=== PATIENT | male | born 1955 | race Two or more races ===

== ENCOUNTER 2017-01-22 22:10 | Inpatient (IN) | payer BC, OTHER ==
[~2017-01-22] VITALS: Ht 170.2 cm; Wt 68.2 kg
[~2017-01-22 22:10] MED LIST: Dilaudid PO; MELOXICAM15 MG PO; NAPROSYN500 MG PO; OXYCODONE HCL5 MG PO; PANTOPRAZOLE SO40 MG PO; REGLAN10 MG PO; TRAMADOL HCL50 MG PO
[2017-01-23 06:09] VITALS: BP 115/62
[2017-01-23 12:35] VITALS: BP 141/74
[2017-01-23 15:05] VITALS: BP 142/77
[2017-01-23 17:33] VITALS: BP 144/74
[2017-01-23 19:30] VITALS: BP 144/81
[2017-01-24 00:04] VITALS: BP 116/71
[2017-01-24 04:13] VITALS: BP 126/60
[2017-01-24 05:33] LABS: HEMATOCRIT 35.5 % (38.0-50.0); MCV 85.7 FL (86-99)
[2017-01-24 06:04] LABS: ANION GAP 5 MEQ/L (2-14); CHLORIDE 105 MEQ/L (99-109); GFR ESTIMATE (CALCULATED) > 59 mL/min/; GLUCOSE 179 mg/dL (70-99); POTASSIUM 4.4 MEQ/L (3.7-5.4); SAMPLE HEMOLYSIS CHECK 0; SAMPLE ICTERIC CHECK 0; SAMPLE LIPEMIA CHECK 0; SODIUM 138 MEQ/L (136-147); UREA NITROGEN (BUN) 10 mg/dL (9-23)
[2017-01-24 08:05] VITALS: BP 132/59
[2017-01-24 11:07] LABS: Estimated Average Glucose 120 mg/dL (70-123); HEMOGLOBIN A1c (GLYCOHEMOGLOB) 5.8 % HGB (Below 5.7)
[2017-01-24 11:32] VITALS: BP 123/58
[2017-01-24 15:32] VITALS: BP 115/63
[2017-01-24 19:33] VITALS: BP 128/65
[2017-01-25 00:10] VITALS: BP 114/64
[2017-01-25 04:08] VITALS: BP 124/64
[2017-01-25 07:05] LABS: MCV 87.7 FL (86-99)
[2017-01-25 08:09] VITALS: BP 107/64
[2017-01-25] MEDS ORDERED: ELIQUIS2.5 MG PO (08:24)
[2017-01-25] MEDS ORDERED: ENDOCET 5-3251 EACH PO (08:24)
[2017-01-25] MEDS ORDERED: DOCUSATE SODIU100 MG PO (08:24)
[2017-01-25 12:00] VITALS: BP 108/62
[2017-01-25 15:04] VITALS: BP 140/66
== END 2017-01-25 15:07 | DRG 470 ==
LOC: ENRESERV 22:10 → 2SOUTH 01-23 05:21 → 3WEST 01-23 12:22 → 2SOUTH 01-23 14:57 → 3WEST 01-25 15:07
PROVIDERS: Orthopaedic Surgery
PROC: 0SRD0J9 Replacement of Left Knee Joint with Synthetic Substitute, Cemented, Open Approach (ICD-10-PCS; principal; 2017-01-23)
DX: M17.12 Unilateral primary osteoarthritis, left knee (principal); D50.0 Iron deficiency anemia secondary to blood loss (chronic); R73.9 Hyperglycemia, unspecified; M54.9 Dorsalgia, unspecified; G89.29 Other chronic pain; M25.519 Pain in unspecified shoulder; K59.00 Constipation, unspecified; I25.10 Atherosclerotic heart disease of native coronary artery without angina pectoris; Z88.0 Allergy status to penicillin; R39.198 Other difficulties with micturition
CPT/HCPCS: 80048; 83036; 85014; 85018; C1713; J0131; J0690; J1100; J1170; J1885; J2250; J2405; J3010; J7050; J7120